=== PATIENT | male | born 1960 | race Hispanic/Latino ===

== ENCOUNTER 2017-05-20 13:46 | Emergency (ER) | payer SELFPAY ==
[2017-05-20 14:22] VITALS: BP 123/71
[2017-05-20] MEDS ORDERED: MOTRIN PO ONE (16:33)
--- NOTE | 2017-05-20 16:36 | Emergency Department Report ---
ED Laceration HPI - HPI Chief Complaint: Extremity Injury, Lower Stated Complaint: LEFT LEG LACERATION Time Seen by Provider: 05/20/17 16:03 Occurred When: Today Location: Lower Extremity Severity: mild Tetanus Status: Up to Date (4 months ago) Laceration Symptoms: Yes Pain, No Foreign Body Sensation, No Numbness, No Weakness Other History: This is a 56-year-old male nontoxic, well nourished in appearance , no acute signs of distress presents to the ED with c/o of left thigh laceration from a chainsaw. He was working by accidentally the chainsaw causing laceration towards his left anterior thigh. Patient denies any numbness. Patient stated bleeding is under control. Patient denies any chest pain, shortness of breath, fever, chills, nausea, vomiting, headache or stiff neck. Patient stated a left tetanus shot was about 4 months ago. She denies any past medical history. Patient states allergies to penicillin. ED Review of Systems ROS: Stated complaint: LEFT LEG LACERATION Other details as noted in HPI Constitutional: denies: chills, fever Eyes: denies: eye pain, eye discharge, vision change ENT: denies: ear pain, throat pain Respiratory: denies: cough, shortness of breath, wheezing Cardiovascular: denies: chest pain, palpitations Endocrine: no symptoms reported Gastrointestinal: denies: abdominal pain, nausea, diarrhea Genitourinary: denies: urgency, dysuria Musculoskeletal: denies: back pain, joint swelling, arthralgia Skin: denies: rash, lesions Neurological: denies: headache, weakness, paresthesias Psychiatric: denies: anxiety, depression Hematological/Lymphatic: denies: easy bleeding, easy bruising ED Past Medical Hx - Past Medical History Previous Medical History?: No Additional medical history: lung ca (remission) - Surgical History Additional Surgical History: bilateral wrist surgery - Social History Smoking Status: Current Every Day Smoker - Medications Home Medications: Home Medications Medication Instructions Recorded Confirmed Last Taken Type Cephalexin [Keflex] 500 mg PO Q12HR #20 cap 12/31/16 Unknown Rx traMADol [Ultram] 50 mg PO Q6HR PRN #10 tablet 12/31/16 Unknown Rx Ibuprofen [Motrin] 600 mg PO Q8H PRN #30 tablet 05/20/17 Unknown Rx Sulfamethoxazole/Trimethoprim 1 each PO BID #14 tablet 05/20/17 Unknown Rx [Bactrim DS TAB] Laceration Physical Exam - Exam General: Vital signs noted. No distress. Alert and acting appropriately. GENERAL: The patient is a well-developed, well-nourished in no apparent distress. Patient is alert and acting appropriately for age. Alert and oriented 3, no apparent distress, normal gait, atraumatic. HEENT: Head is normocephalic and atraumatic. PERRL, Extraocular muscles are intact. Pupils are equal, round, and reactive to light and accommodation. Nares appeared normal. Mouth is well hydrated and without lesions. Mucous membranes are moist. Posterior pharynx clear of any exudate or lesions. Mouth is well hydrated and without lesions. Tonsils not erythematous or swollen. Uvula midline. Tongue elevated. Mucous members are moist. Posterior pharynx clear, no exudate or lesions. Patent airways. NECK: Supple. No carotid bruits. No lymphadenopathy or thyromegaly.nontender. No meningitic signs are noted. LUNGS: Clear to auscultation. Non labor breathing. No intercostal retractions. Symmetrical with respiration, no wheezing, no rales, or crackles. HEART: Regular rate and rhythm without murmur, rubs or gallops. No reproducible. S1, S2 present, regular rate and rhythm without murmur, no rubs, no gallops. ABDOMEN: Soft, nontender, and nondistended. Positive bowel sounds. No hepatosplenomegaly was noted. No guarding or rebound tenderness, negative epigastric bruit. Negative psoas sign, negative gonzalez sign, negative McBurneys sign EXTREMITIES: Without any cyanosis, clubbing, rash, lesions or edema. Peripheral pulses intact. Capillary refill less than 2 seconds. Full range of motion bilaterally. NEUROLOGIC: Cranial nerves II through XII are grossly intact. Alert and oriented x 3. Normal gait. Symmetrical strength and sensation. Reflexes 2+ throughout. Cerebellar testing normal. GCS score of 15. PSYCHIATRIC: Normal affect with no suicidal or homicidal ideations. Skin: 5 cm deep dermis laceration to left thigh. Wound Length (cm): 5 Laceration Location: Lower Extremity Full Body Front + Back: 1 - 5 cm deep tissue lac Laceration Exam: Yes Normal Distal CMS, No Foreign Body, No Exposed Tendon, Vessel, or Nerve, No Tendon Injury ED Course Vital Signs 05/20/17 14:19 Temperature 98.8 F Pulse Rate 77 Respiratory 16 Rate Blood Pressure 123/71 O2 Sat by Pulse 97 Oximetry - Reevaluation(s) Reevaluation #1: 05/20/17 16:36 Patient is speaking in full sentences with no signs of distress noted. - Laceration /Wound Repair Left Thigh Wound Location: lower extremity (left anterior thigh) Wound Length (cm): 5 Wound's Depth, Shape: linear, flap Wound Explored: clean Irrigated w/ Saline (ccs): 40 Betadine Prep?: Yes Anesthesia: 0.5% Sensorcaine (plain) Volume Anesthetic (ccs): 6 Wound Debrided: minimal Wound Repaired With: sutures Suture Size/Type: 3:0, proline Number of Sutures: 5 Layer Closure?: Yes Deep Layer Suture Size/Type: 3:0 (vicryl) Number Deep Layer Sutures: 2 Sterile Dressing Applied?: Yes Progress: Under sterile field, I used Betadine to clean the area. I then used 40 mL of normal saline to flush the area. I then used 0.5% Marcaine plain and injected 6 mL to the wound. The deep dermis is sutured with 3-0 Vicryl with total of 2 stitches. I then used a 3-0 Prolene to suture the laceration. Number of stitches 5. I then applied a sterile 4 x 4 with tape. Minimal bleeding noted but is under control. Patient tolerated procedure well with no signs of distress. ED Medical Decision Making - Medical Decision Making This 56-year-old male that presents for laceration. Patient is stable and was examined by me. The area has been sutured and patient thought her well. Patient was instructed to proper wound care. Patient was also instructed to return in 7-10 days for suture removal. Sterile dressing has been applied. Patient is neurovascularly intact. Patient is discharged with Bactrim and Motrin. He was instructed Follow-up with a primary care doctor in 3-5 days or if symptoms worsen and continue return to emergency room as soon as possible. At time of discharge, the patient does not seem toxic or ill in appearance. No acute signs of distress noted. Patient agrees to discharge treatment plan of care. No further questions noted by the patient. Critical care attestation.: If time is entered above; I have spent that time in minutes in the direct care of this critically ill patient, excluding procedure time. ED Disposition Clinical Impression: Laceration Disposition: DC-01 TO HOME OR SELFCARE Is pt being admited?: No Does the pt Need Aspirin: No Condition: Stable Instructions: Suture Care (ED), Laceration (ED), Sulfamethoxazole/Trimethoprim (By mouth), Ibuprofen (By mouth) Additional Instructions: Follow-up with a primary care doctor in 3-5 days or if symptoms worsen and continue return to emergency room as soon as possible. Return in 10 days for suture removal. Prescriptions: Ibuprofen [Motrin] 600 mg PO Q8H PRN #30 tablet PRN Reason: Pain Sulfamethoxazole/Trimethoprim [Bactrim DS TAB] 1 each PO BID #14 tablet Referrals: PRIMARY MD TIA [Primary Care Provider] - 3-5 Days COLTEN PAIGE MD [Staff Physician] - 3-5 Days [facility] [Outside] - 3-5 Days [facility] [Outside] - 3-5 Days Forms: Work/School Release Form(ED)
== END 2017-05-20 17:25 | disposition home or self-care (01) ==
LOC: ED 13:46
DX: S71.112A Laceration without foreign body, left thigh, initial encounter (principal); F17.200 Nicotine dependence, unspecified, uncomplicated; W27.8XXA Contact with other nonpowered hand tool, initial encounter; Y93.89 Activity, other specified; Y99.8 Other external cause status; Y92.89 Other specified places as the place of occurrence of the external cause

== ENCOUNTER 2018-04-19 20:12 | Emergency (ER) | payer SELFPAY ==
[2018-04-19 21:22] LABS: Basophils % (Auto) 0.6 % (0.0-1.8); Eosinophils # (Auto) 0.1 K/mm3 (0.0-0.4); Eosinophils % (Auto) 2.1 % (0.0-4.3); Hematocrit 41.8 % (35.5-45.6); Hemoglobin 14.5 gm/dl (11.8-15.2); Mean Corpuscular HGB Conc 35 % (32-34); Mean Corpuscular Volume 89 fl (84-94); Monocytes # (Auto) 0.4 K/mm3 (0.0-0.8); Monocytes % (Auto) 4.9 % (0.0-7.3); Platelet Count 310 K/mm3 (140-440); Red Blood Count 4.71 M/mm3 (3.65-5.03); Red Cell Distribution Width 14.1 % (13.2-15.2)
[2018-04-19 22:08] LABS: BUN/Creatinine Ratio 14; Blood Urea Nitrogen 13 mg/dL (9-20); Calcium 8.7 mg/dL (8.4-10.2); Hemolysis Index 9
[2018-04-19 22:40] LABS: Bilirubin,Urine NEG (Negative); Blood,Urine NEG (Negative); Color,Urine Yellow (Yellow); Hyaline Casts,Urine 1 /LPF; Mucus,Urine FEW /HPF; Protein,Urine <15 mg/dL mg/dL (Negative)
[2018-04-19] MEDS ORDERED: SUBLIMAZE IV ONE (22:46)
[2018-04-19] MEDS ORDERED: ZOFRAN IV ONE (22:46)
[2018-04-19] MEDS ORDERED: TORADOL IV ONE (22:46)
--- NOTE | 2018-04-19 22:50 | Emergency Department Report ---
HPI - General Chief Complaint: Back Pain/Injury Time Seen by Provider: 04/19/18 22:40 - HPI HPI: Room 17 The patient is a 57-year-old male presented with a chief complaint of left flank pain. Patient states for the past 2 days she's had a constant sharp pain in his left flank associated with nausea but no vomiting. Patient denies dysuria, hematuria or fever. The patient denies previous episodes of same. The patient gives his pain a score of 10/10 Location: Left flank Duration: 2 days Quality: Sharp Severity: 10/10 Modifying factors: [see above] Context: [see above] Mode of transportation: [not driving] ED Past Medical Hx - Past Medical History Previous Medical History?: Yes Hx COPD: Yes Additional medical history: lung ca (remission) - Surgical History Past Surgical History?: Yes Additional Surgical History: bilateral wrist surgery - Family History Family history: no significant - Social History Smoking Status: Current Every Day Smoker (1 pack per day) Substance Use Type: None (denies illicit drug use) - Medications Home Medications: Home Medications Medication Instructions Recorded Confirmed Last Taken Type cephALEXin [Keflex] 500 mg PO Q12HR #20 cap 12/31/16 Unknown Rx traMADol [Ultram] 50 mg PO Q6HR PRN #10 tablet 12/31/16 Unknown Rx Ibuprofen [Motrin] 600 mg PO Q8H PRN #30 tablet 05/20/17 Unknown Rx Sulfamethoxazole/Trimethoprim 1 each PO BID #14 tablet 05/20/17 Unknown Rx [Bactrim DS TAB] Ibuprofen [Motrin 800 MG tab] 800 mg PO Q8HR PRN #20 tablet 04/20/18 Unknown Rx Ondansetron [Zofran ODT TAB] 8 mg PO Q8HR #20 tab.rapdis 04/20/18 Unknown Rx traMADol [Ultram] 50 mg PO Q6HR PRN #10 tablet 04/20/18 Unknown Rx ED Review of Systems ROS: Stated complaint: LOWER BACK PAIN Other details as noted in HPI Constitutional: denies: fever Eyes: denies: eye pain ENT: denies: throat pain Respiratory: no symptoms reported Cardiovascular: denies: chest pain Endocrine: no symptoms reported Gastrointestinal: nausea Genitourinary: denies: dysuria, hematuria Musculoskeletal: back pain Neurological: denies: headache Physical Exam - Physical Exam Vital Signs: Vital Signs 04/19/18 04/19/18 20:26 20:47 Temperature 98.1 F 98.1 F Pulse Rate 82 83 Respiratory 20 18 Rate Blood Pressure 147/80 147/80 O2 Sat by Pulse 99 100 Oximetry Physical Exam: GENERAL: The patient is well-developed well-nourished male lying on stretcher not appearing to be in acute distress. [] HEENT: Normocephalic. Atraumatic. Extraocular motions are intact. Patient has moist mucous membranes. NECK: Supple. Trachea midline CHEST/LUNGS: Clear to auscultation. There is no respiratory distress noted. HEART/CARDIOVASCULAR: Regular. There is no tachycardia. There is no gallop rub or murmur. ABDOMEN: Abdomen is soft, with mild discomfort to palpation in the left lower quadrant. There is no rebound or guarding. Patient has normal bowel sounds. There is no abdominal distention. SKIN: There is no rash. There is no edema. There is no diaphoresis. NEURO: The patient is awake, alert, and oriented. The patient is cooperative. The patient has normal speech MUSCULOSKELETAL: There is left CVA tenderness. There is no evidence of acute injury. ED Course Vital Signs 04/19/18 04/19/18 20:26 20:47 Temperature 98.1 F 98.1 F Pulse Rate 82 83 Respiratory 20 18 Rate Blood Pressure 147/80 147/80 O2 Sat by Pulse 99 100 Oximetry ED Medical Decision Making - Lab Data Result diagrams: 04/19/18 21:13 04/19/18 21:13 Laboratory Tests 04/19/18 04/19/18 04/19/18 21:13 21:13 22:08 WBC 7.2 RBC 4.71 Hgb 14.5 Hct 41.8 MCV 89 MCH 31 MCHC 35 H RDW 14.1 Plt Count 310 Lymph % (Auto) 14.0 [place] % (Auto) 4.9 Eos % (Auto) 2.1 Baso % (Auto) 0.6 Lymph # 1.0 L [place] # 0.4 Eos # 0.1 Baso # 0.0 Seg Neutrophils % 78.4 H Seg Neutrophils # 5.6 Sodium 139 Potassium 4.2 Chloride 100.3 Carbon Dioxide 26 Anion Gap 17 BUN 13 Creatinine 0.9 Estimated GFR > 60 BUN/Creatinine Ratio 14 Glucose 108 H Calcium 8.7 Urine Color Yellow Urine Turbidity Clear Urine pH 5.0 Ur Specific [place] 1.027 Urine Protein <15 mg/dl Urine Glucose (UA) Neg Urine Ketones Tr Urine Blood Neg Urine Nitrite Neg Urine Bilirubin Neg Urine Urobilinogen 2.0 Ur Leukocyte Esterase Neg Urine WBC (Auto) 1.0 Urine RBC (Auto) 5.0 U Epithel Cells (Auto) < 1.0 Hyaline Casts 1 Urine Mucus Few - Radiology Data Radiology results: report reviewed (CT abdomen and pelvis), image reviewed (CT abdomen and pelvis) - Medical Decision Making CT abdomen and pelvis results discussed with patient. Need for follow-up with GI for further evaluation of his liver discussed. Patient verbalized understanding - Differential Diagnosis renal colic, pyelonephritis, diverticulitis Critical care attestation.: If time is entered above; I have spent that time in minutes in the direct care of this critically ill patient, excluding procedure time. ED Disposition Clinical Impression: Acute left flank pain, Nausea Disposition: TO HOME OR SELFCARE Is pt being admited?: No Does the pt Need Aspirin: No Condition: Stable Instructions: Flank Pain (ED) Additional Instructions: Return to the emergency department immediately should you develop worsening symptoms, fever, inability to tolerate food or liquid or any other concerns. Prescriptions: Ibuprofen [Motrin 800 MG tab] 800 mg PO Q8HR PRN #20 tablet PRN Reason: Pain, Moderate (4-6) Ondansetron [Zofran ODT TAB] 8 mg PO Q8HR #20 tab.rapdis traMADol [Ultram] 50 mg PO Q6HR PRN #10 tablet PRN Reason: Pain Referrals: [facility] MD EMMY [Primary Care Provider] - 3-5 Days CHRIS BONNER MD [Staff Physician] - 3-5 Days (Dr. Bonner is a forest ranger technician. Please follow up with him for further evaluation of your liver) Time of Disposition: 00:44
[2018-04-20] MEDS ORDERED: NACL 0.9% 1000 ML 1,000 ML ONE (00:26)
--- NOTE | 2018-04-20 00:39 | Cat Scan Report ---
FINAL REPORT EXAM: CT ABDOMEN PELVIS WO CON HISTORY: left flank pain, nausea TECHNIQUE: Helical CT scan through the abdomen and pelvis without contrast. Images are reconstructed in the sagittal and coronal planes. PRIORS: None. FINDINGS: Solid organ and bowel evaluation is limited without intravenous contrast. Bowel evaluation is limited without oral contrast. Images through the lung bases show a small calcified granuloma in the right lower lobe. There are numerous low-attenuation lesions scattered throughout the liver with the largest in the lef t lobe measuring 1.2 cm. The gallbladder, pancreas, spleen and left adrenal gland appear grossly normal. There is a 4.0 x 2.1 x 3.8 cm low attenuation right adrenal lesion most consistent with an adrenal my elolipoma. The kidneys appear grossly normal. The pelvic organs appear grossly normal. The stomach appears grossly within normal limits. There are no abnormally dilated loops of bowel or acute inflammatory changes. A normal-appearing appe ndix is identified. The abdominal aorta has a normal diameter. There is multilevel advanced degenerative disc and facet disease of the lower thoracic and lumbar spi ne. There is mild osteoarthrosis of the bilateral hips. There is a small left inguinal hernia contain ing normal appearing fat. IMPRESSION: 1. Numerous hepatic low-attenuation lesions scattered throughout the liver are incompletely character ized without intravenous contrast and most likely represent cysts. Further evaluation with ultrasound is recommended on a routine basis to exclude solid lesions. 2. No acute findings in the abdomen/pelvis 3. 4.0 cm low-attenuation lesion in the right adrenal gland most consistent with an adrenal myelolipo ma
[2018-04-20] MEDS ORDERED: NACL 0.9% 1000 ML 1,000 ML IV ONE (00:40)
[2018-04-20 00:46] VITALS: BP 135/83
== END 2018-04-20 01:23 | disposition home or self-care (01) ==
LOC: ED 20:12
DX: R10.9 Unspecified abdominal pain (principal); R11.0 Nausea; J44.9 Chronic obstructive pulmonary disease, unspecified; F17.200 Nicotine dependence, unspecified, uncomplicated
CPT/HCPCS: 36415; 74176; 80048; 81001; 85025; 96374; 96375; 99284; J1885; J2405; J3010; J7030

== ENCOUNTER 2018-09-07 16:31 | Emergency (ER) | payer SELFPAY ==
[2018-09-07] MEDS ORDERED: MORPHINE IV ONE (16:56)
[2018-09-07] MEDS ORDERED: NACL 0.9% 1000 ML 1,000 ML IV ONE (16:56)
[2018-09-07] MEDS ORDERED: ZOFRAN IV ONE (16:56)
[2018-09-07] MEDS ORDERED: MORPHINE ONE (17:00)
[2018-09-07] MEDS ORDERED: ZOFRAN ONE (17:00)
[2018-09-07 17:42] LABS: Hematocrit 47.9 % (35.5-45.6); Hemoglobin 16.1 gm/dl (11.8-15.2); Mean Corpuscular HGB Conc 34 % (32-34); Mean Corpuscular Volume 90 fl (84-94); Platelet Count 267 K/mm3 (140-440); Red Blood Count 5.31 M/mm3 (3.65-5.03); Red Cell Distribution Width 14.1 % (13.2-15.2)
[2018-09-07 18:09] LABS: BUN/Creatinine Ratio 13; Blood Urea Nitrogen 13 mg/dL (9-20); Calcium 8.7 mg/dL (8.4-10.2); Hemolysis Index 49
--- NOTE | 2018-09-07 18:39 | Emergency Department Report ---
ED Male HPI - General Chief complaint: Medical Clearance Stated complaint: HERNIA PAIN Time Seen by Provider: 09/07/18 16:55 Source: patient, EMS Mode of arrival: Stretcher Limitations: No Limitations - History of Present Illness Initial comments: Mr. Cardenas is a 57-year-old male with history of lung cancer remission and inguinal hernia who presents with severe sudden onset of left groin pain and swelling. He has had hernias in his groin region bilaterally for the past 2 years. He was evaluated at outside hospital 2 years ago. The hernia was re duced by the healthcare provider at that time. Today he has severe pain at the hernia transferred to arrival. It occurred suddenly while he was walking. He states that hernia comes out every day. However this is the first time it was hard tender and painful. Arrived via EMS. Complaint: groin pain -: Sudden, hour(s) (2) Location: left inguinal region Severity: severe Quality: sharp Consistency: constant Improves with: supine Worsens with: palpation denies other symptoms - Related Data Previous Rx's Medication Instructions Recorded Last Taken Type cephALEXin [Keflex] 500 mg PO Q12HR #20 cap 12/31/16 Unknown Rx traMADol [Ultram] 50 mg PO Q6HR PRN #10 tablet 12/31/16 Unknown Rx Ibuprofen [Motrin] 600 mg PO Q8H PRN #30 tablet 05/20/17 Unknown Rx Sulfamethoxazole/Trimethoprim 1 each PO BID #14 tablet 05/20/17 Unknown Rx [Bactrim DS TAB] Ibuprofen [Motrin 800 MG tab] 800 mg PO Q8HR PRN #20 tablet 04/20/18 Unknown Rx Ondansetron [Zofran ODT TAB] 8 mg PO Q8HR #20 tab.rapdis 04/20/18 Unknown Rx traMADol [Ultram] 50 mg PO Q6HR PRN #10 tablet 04/20/18 Unknown Rx Allergies Allergy/AdvReac Type Severity Reaction Status Date / Time Penicillins Allergy Angioedema Verified 12/31/16 15:11 ED Review of Systems ROS: Stated complaint: HERNIA PAIN Other details as noted in HPI Comment: All other systems reviewed and negative Constitutional: denies: fever, malaise Gastrointestinal: denies: abdominal pain, nausea, vomiting ED Past Medical Hx - Past Medical History Previous Medical History?: Yes Hx COPD: Yes Additional medical history: lung ca (remission) - Surgical History Additional Surgical History: bilateral wrist surgery - Social History Smoking Status: Current Every Day Smoker - Medications Home Medications: Home Medications Medication Instructions Recorded Confirmed Last Taken Type cephALEXin [Keflex] 500 mg PO Q12HR #20 cap 12/31/16 Unknown Rx traMADol [Ultram] 50 mg PO Q6HR PRN #10 tablet 12/31/16 Unknown Rx Ibuprofen [Motrin] 600 mg PO Q8H PRN #30 tablet 05/20/17 Unknown Rx Sulfamethoxazole/Trimethoprim 1 each PO BID #14 tablet 05/20/17 Unknown Rx [Bactrim DS TAB] Ibuprofen [Motrin 800 MG tab] 800 mg PO Q8HR PRN #20 tablet 04/20/18 Unknown Rx Ondansetron [Zofran ODT TAB] 8 mg PO Q8HR #20 tab.rapdis 04/20/18 Unknown Rx traMADol [Ultram] 50 mg PO Q6HR PRN #10 tablet 04/20/18 Unknown Rx ED Physical Exam - General Limitations: No Limitations General appearance: alert, in no apparent distress, other (appears in severe pain) - Head Head exam: Present: atraumatic, normocephalic - Eye Eye exam: Present: normal appearance - ENT ENT exam: Present: mucous membranes moist - Neck Neck exam: Present: normal inspection, full ROM - Respiratory Respiratory exam: Present: normal lung sounds bilaterally. Absent: respiratory distress, wheezes, rales, rhonchi, stridor - Cardiovascular Cardiovascular Exam: Present: regular rate, normal rhythm, normal heart sounds. Absent: systolic murmur, diastolic murmur, rubs, gallop - GI/Abdominal GI/Abdominal exam: Present: soft, normal bowel sounds. Absent: distended, tende rness, guarding, rebound - exam: Present: other (hard tender nonmobile 3 cm hernia at the left groin just lateral and superior to the penis shaft ) - Extremities Exam Extremities exam: Present: normal inspection - Neurological Exam Neurological exam: Present: alert, oriented X3 - Psychiatric Psychiatric exam: Present: normal affect, normal mood - Skin Skin exam: Present: warm, dry, intact, normal color. Absent: rash ED Course Vital Signs 09/07/18 09/07/18 17:15 17:22 Temperature 98.2 F Pulse Rate 63 Respiratory 17 18 Rate Blood Pressure 135/71 [Left] O2 Sat by Pulse 98 98 Oximetry ED Medical Decision Making - Lab Data Result diagrams: 09/07/18 17:23 09/07/18 17:23 - Medical Decision Making Mr. Junior presents with severe pain due to incarcerated hernia. We provided Mr. Junior with IV analgesia morphine. I applied ice pack to the region for over 30 minutes. After ice application, the hernia had softened and decreased in size. I was able to reduce the hernia once it became moboile and smaller. With manipulation I was able to completely reduce the hernia. Patient was pain-free after the procedure. I did detect a defect in the abdominal wall the size of the width of a large finger. I recommended use of stool softeners. Also recommended that he reduces the hernia on his own at home. I referred him to general surgeon vector control specialist. Critical care attestation.: If time is entered above; I have spent that time in minutes in the direct care of this critically ill patient, excluding procedure time. ED Disposition Clinical Impression: Incarcerated left inguinal hernia Disposition: DC-01 TO HOME OR SELFCARE Is pt being admited?: No Does the pt Need Aspirin: No Condition: Stable Instructions: Inguinal Hernia (ED) Referrals: BRUNO NOVAK MD [Staff Physician] - 3-5 Days
[2018-09-07 18:45] VITALS: BP 136/80
[2018-09-07 19:57] LABS: Basophils % (Manual) 0 % (0.0-1.8); Monocytes % (Manual) 0 % (0.0-7.3); Total Cells Counted 100
[2018-09-07 19:58] LABS: RBC Morphology Normal
== END 2018-09-07 18:47 | disposition home or self-care (01) ==
LOC: ED 16:31
DX: K40.90 Unilateral inguinal hernia, without obstruction or gangrene, not specified as recurrent (principal); J44.9 Chronic obstructive pulmonary disease, unspecified; F17.200 Nicotine dependence, unspecified, uncomplicated; Z98.890 Other specified postprocedural states; Z79.899 Other long term (current) drug therapy; Z88.0 Allergy status to penicillin
CPT/HCPCS: 36415; 80048; 85007; 85025; 96374; 96375; 99284; J2270; J2405; J7030; 96361